=== PATIENT | female | born 1935 | race Two or more races ===

== ENCOUNTER 2024-11-13 10:51 | Inpatient (IN) | payer OTHER ==
[~2024-11-13] VITALS: Ht 152.4 cm; Wt 57.2 kg
[2024-11-13 12:08] LABS: Basophils # (auto) 0 10 ^3/uL (0-0.2); Basophils % (auto) 0.3 % (0.0-2.0); Eosinophils # (auto) 0 10 ^3/uL (0-0.8); Eosinophils % (auto) 0.1 % (0.0-7.0); Hemoglobin 11.7 g/dL (12.2-16.2); Lymphocytes # (auto) 1.2 10 ^3/uL (0.4-5.4); Lymphocytes % (auto) 9.2 % (10.0-50.0); Mean Corpuscular Hgb Conc. 34.5 g/dL (32.0-36.0); Mean Corpuscular Volume 95.7 fL (80.0-100.0); Monocytes # (auto) 1.5 10 ^3/uL (0-1.3); Monocytes % (auto) 11.1 % (0.0-12.0); Neutrophils # (auto) 10.6 10 ^3/uL (1.6-8.6); Neutrophils % (auto) 79.3 % (37.0-80.0); Platelet Count (auto) 265 10^3/uL (140-450); Red Blood Cells 3.55 10^6/uL (4.0-5.20); Red Cell Distribution Width 12.9 % (11.8-14.3); White Blood Cell 13.4 10^3/uL (4.4-10.8)
[2024-11-13 12:19] LABS: Potassium 4.6 mmol/L (3.5-5.1)
[2024-11-13 12:20] LABS: Anion Gap 9 (5-15); Calcium 9.9 mg/dL (8.7-10.4); Carbon Dioxide 21 mmol/L (20-31); Chloride 98 mmol/L (98-107); Sodium 128 mmol/L (136-145)
[2024-11-13 12:25] LABS: BUN/Creatinine Ratio 26.9 (10.0-20.0); Blood Urea Nitrogen 18 mg/dL (9-23); Glucose 93 mg/dL (74-106)
--- NOTE | 2024-11-13 12:28 | ED.PDOC ---
History of Present Illness HPI Comments 88-year-old female brought in by EMS from home. Daughter called 911, as the patient has been complaining of right hip pain for the last 4 days, and has been unable to ambulate today due to the pain. Patient's daughter states patient has a history of dementia, and could not recall if she had fallen. Daughter states patient was seen at another hospital for right hand pain, x-rays were performed, they were told there was no fracture, and the patient was placed in a splint. At the time, the patient was not complaining of pain anywhere else, so no other imaging was performed. Patient localizes the pain to the mid and right low back and right hip. She denies any numbness, weakness or limited range of motion. Chief Complaint: Lower Extremity Time Seen by MD: 11:45 Reviewed Notes: Nurses Notes, Oil Heater Operator Notes, Medications, Allergies Allergies: Coded Allergies: Ciprofloxacin (Verified Allergy, Severe, 11/13/24) Information Source: Patient, Relative (Child) Mode of Arrival: EMS Severity: Moderate Timing: Days Duration: Since onset, Days Prehospital treatment: None Past Medical History PAST MEDICAL HISTORY: Alzheimer, CVA, High Lipids, HTN Surgical History: Hysterectomy MATERIAL MANAGER History: No Pertinent MATERIAL MANAGER History Family History Family History: Reviewed,noncontributory to illness, Unknown Social History Smoker: Non-Smoker Alcohol: Denies ETOH Use Drugs: Denies Drug Use Lives In: Home Constitutional: denies: chills, diaphoresis, fatigue, fever, malaise, sweats, weakness, others EENTM: denies: blurred vision, double vision, ear bleeding, ear discharge, ear drainage, ear pain, ear ringing, eye pain, eye redness, hearing loss, mouth pain, mouth swelling, nasal discharge, nose bleeding, nose congestion, nose pain, photophobia, tearing, throat pain, throat swelling, voice changes, others Respiratory: denies: cough, hemoptysis, orthopnea, SOB at rest, shortness of breath, SOB with excertion, stridor, wheezing, others Cardiovascular: denies: chest pain, dizzy spells, diaphoresis, Dyspnea on exertion, edema, irregular heart beat, left arm pain, lightheadedness, palpitations, PND, syncope, others Gastrointestinal: denies: abdomen distended, abdominal pain, blood streaked bowels, constipated, diarrhea, dysphagia, difficulty swallowing, hematemesis, melena, nausea, poor appetite, poor fluid intake, rectal bleeding, rectal pain, vomiting, others Genitourinary: denies: abnormal vagina bleeding, burning, dyspareunia, dysuria, flank pain, frequency, hematuria, incontinence, pain, , vagina discharge, urgency, others Neurological: denies: dizziness, fainting, headache, left sided numbness, left sided weakness, numbness, paresthesia, pre-existing deficit, right sided numbness, right sided weakness, seizure, speech problems, tingling, tremors, weakness, others Musculoskeletal: reports: others (hip pain); denies: back pain, gout, joint pain, joint swelling, muscle pain, muscle stiffness, neck pain Integumetry: denies: bruises, change in color, change in hair/nails, dryness, laceration, lesions, lumps, rash, wounds, others Allergic/Immunocompromised: denies: Difficulty Healing, Frequent Infections, Hives, Itching, others Hematologic/Lymphatic: denies: anemia, blood clots, easy bleeding, easy bruising, swollen glands, others Endocrine: denies: excessive hunger, excessive sweating, excessive thirst, excessive urination, flushing, intolerance to cold, intolerance to heat, unexpl ained weight gain, unexplained weight loss, others Psychiatric: denies: anxiety, bipolar disorder, depression, hopeless, panic disorder, schizophrenia, sleepless, suicidal, others All Other Systems: Reviewed and Negative Physical Exam General Appearance: No Apparent Distress HEENT: Other (Pupils and face symmetric. Moist mucous membranes.) Neck: Full Range of Motion, Normal Inspection Respiratory: Lungs Clear, No Accessory Muscle Use, No Respiratory Distress, Normal Breath Sounds Cardiovascular: No Edema, No JVD, Regular Rate/Rhythm Breast Exam: Deferred Gastrointestinal: Non Tender, Soft Genitalia: Deferred Pelvic: Deferred Rectal: Deferred Extremities: Normal inspection, Other (Lumbar midline, right lower back and right hip tenderness to palpation. No bruising or crepitus.) Neurologic: Alert (Oriented x2), Normal Affect, Normal Mood, Other (Moves all extremities) Cerebellar Function: NOT DONE Reflexes: NOT DONE Skin: Dry, Normal Color, Warm Lymphatic: NOT DONE Was a procedure done? Was a procedure done?: No Differential Dx Considerations may include: Spine fracture, hip fracture, neuropathic pain, disc disease, sprain, strain, other soft tissue injury, contusion, among others X-Ray, Labs, Meds, VS Vital Signs Date Time Temp Pulse Resp B/P (MAP) Pulse Ox O2 Delivery O2 Flow Rate FiO2 11/13/24 19:45 98.3 65 17 128/45 (72) 96 98.3 11/13/24 18:20 98.0 66 15 127/49 (75) 93 98.0 11/13/24 18:20 66 15 93 Room Air* 0 21 11/13/24 16:28 97.8 63 12 115/37 (63) 96 97.8 11/13/24 13:23 98.2 67 16 155/64 (94) 99 98.2 11/13/24 10:57 97.8 67 15 152/78 (102) 97 97.8 Lab Test 11/13/24 21:13 11/13/24 12:47 11/13/24 11:48 Range/Units Urine Color Colorless Yellow Urine Clarity Turbid H Clear Urine pH 6.5 5.0-9.0 Urine Specific [place] 1.010 1.001-1.035 Urine Protein Trace H Negative Urine Ketones Negative Negative Urine Blood Negative Negative /uL Urine Nitrite Negative Negative Urine Bilirubin Negative Negative Urine Urobilinogen Normal Negative mg/dL Urine Leukocyte Esterase 3+ Negative /uL Urine RBC 2 0 - 4 /hpf Urine Microscopic WBC 37 H 0-5 /HPF Urine Squamous Epithelial Cells Few <5 /hpf Urine Bacteria Many H None Seen /hpf Urine Glucose Normal Normal mg/dL Troponin I High Sensitivity < 3 L 3 L </=34 ng/L White Blood Count 13.4 H 4.4-10.8 10^3/uL Red Blood Count 3.55 L 4.0-5.20 10^6/uL Hemoglobin 11.7 L 12.2-16.2 g/dL Hematocrit 34.0 L 36.0-46.0 % Mean Corpuscular Volume 95.7 80.0-100.0 fL Mean Corpuscular Hemoglobin 33.0 H 28.0-32.0 pg Mean Corpuscular Hemoglobin Concent 34.5 32.0-36.0 g/dL Red Cell Distribution Width 12.9 11.8-14.3 % Platelet Count 265 140-450 10^3/uL Mean Platelet Volume 7.3 6.9-10.8 fL Neutrophils (%) (Auto) 79.3 37.0-80.0 % Lymphocytes (%) (Auto) 9.2 L 10.0-50.0 % Monocytes (%) (Auto) 11.1 0.0-12.0 % Eosinophils (%) (Auto) 0.1 0.0-7.0 % Basophils (%) (Auto) 0.3 0.0-2.0 % Neutrophils # (Auto) 10.6 H 1.6-8.6 10 ^3/uL Lymphocytes # (Auto) 1.2 0.4-5.4 10 ^3/uL Monocytes # (Auto) 1.5 H 0-1.3 10 ^3/uL Eosinophils # (Auto) 0 0-0.8 10 ^3/uL Basophils # (Auto) 0 0-0.2 10 ^3/uL Nucleated Red Blood Cells 0.0 % Sodium Level 128 L 136-145 mmol/L Potassium Level 4.6 3.5-5.1 mmol/L Chloride Level 98 98-107 mmol/L Carbon Dioxide Level 21 20-31 mmol/L Anion Gap 9 5-15 Blood Urea Nitrogen 18 9-23 mg/dL Creatinine 0.67 0.550-1.02 mg/dL Glomerular Filtration Rate Calc 83 >90 mL/min BUN/Creatinine Ratio 26.9 H 10.0-20.0 Serum Glucose 93 74-106 mg/dL Calcium Level 9.9 8.7-10.4 mg/dL B-Type Natriuretic Peptide 32.19 0-100 pg/mL Current Medications Medications (Trade) Dose Ordered Sig/Sol Route Start Time Stop Time Status Last Admin Acetaminophen/ Hydrocodone Bitart ([place] 5/325MG Tab) 1 tab ONCE ONCE PO 11/13/24 11:30 11/13/24 11:31 DC 11/13/24 13:29 Ondansetron HCl (Zofran Po) 4 mg ONCE ONCE PO 11/13/24 11:30 11/13/24 11:31 DC 11/13/24 13:28 Sodium Chloride 1,000 ml @ 1,000 mls/hr Q1H ONCE IV 11/13/24 18:15 11/13/24 19:14 DC 11/13/24 18:58 PROCEDURE(s): PL2CT - PELVIS WO CONTRAST REASON: pain, unable to ambulate ORDER NUMBER(s): [id number], ACCESSION NUMBER(s): [id number] Exam: CT PELVIS WO CONTRAST History: pain, unable to ambulate Comparison Study: None available at time of dictation. TECHNIQUE: Multidetector CT of the pelvis without IV contrast. Axial, coronal and sagittal multiplanar reformats were obtained from the axial data set by the technologist. Radiation Dose Information: CT Dose: CTDI volume is 9.63 mGy. Dose-length product is 1040.69 mGy*cm FINDINGS: Diffuse demineralization. No evidence of acute traumatic fractures. Nndr-ar-gjnosztb degenerative changes of bilateral SI joints and bilateral hips. Minimal lateral posterior pelvic wall subcutaneous fat edema with mild edema of the pwjmj-aexuxsb-aqkv-left posterolateral hips Partially visualized sigmoid diverticulosis without diverticulitis. IMPRESSION: No evidence of acute traumatic fractures or dislocations. If symptoms persist, consider MRI to evaluate for possible occult fractures. EDURE(s): LS2CT - LS SPINE WO CONTRAST REASON: pain ORDER NUMBER(s): [id number], ACCESSION NUMBER(s): [id number] CT LS SPINE WO CONTRAST INDICATION: pain : 88 old Female pain EXAM DATE: 11/13/2024 12:46 PM COMPARISON: None RADIATION DOSE: CTDIvol: 18.93 mGy, DLP: 1040.69 mGy*cm Technique: Utilizing the CT scanner, contiguous axial scans were obtained thr ough the lumbar spine. Coronal and sagittal reformatted images were then generated. All CT scans at this medical facility are performed using dose modulation techniques as appropriate to a performed exam including the following: Automated exposure control was utilized; adjustment of the MA and/or KV according to patient size; and use of iterative reconstruction technique. FINDINGS: 5 tas-woh-eeviurv lumbar-type vertebrae. Normal alignment of the lumbar spine. Vertebral body heights are relatively maintained. Superior endplate Schmorl node of L2 and L3 with inferior endplate schmorl node of L3. Hemangioma within the left T12 vertebral body. Diffuse demineralization. T12-L1: No significant spinal canal or neural foramina stenosis. L1-L2: Mild posterior disc bulge without significant spinal canal or neural foramina stenosis. L2-L3: No significant spinal canal stenosis. Mild left-sided neural foramina stenosis. L3-L4: Minimal posterior disc bulge without significant spinal canal stenosis. Jejb-xk-zkufkqme bilateral neural foramina stenosis. L4-L5: Mild posterior disc bulge with ligamentum flavum hypertrophy without significant spinal canal stenosis. Xbpz-mg-zbktpppd bilateral neural foramina stenosis. L5-S1: Grade 1 anterolisthesis of L5 on S1. Mild posterior disc bulge without significant spinal canal stenosis. Moderate right with ctvy-pv-kozcvoum left- sided neural foramina stenosis. Nonspecific calcification within the paraspinal muscle from T11 to L1-L2. Otherwise, the paraspinal muscles are unremarkable. IMPRESSION: No evidence of acute traumatic fractures. Grade 1 anterolisthesis of L5 on S1 which appears degenerative. Multilevel qgzx-fl-xyhictxw degenerative changes of the lumbar spine as detailed above. If symptoms persist, consider MRI for further evaluation. EDURE(s): CXRP - CHEST PORTABLE REASON: possible fall ORDER NUMBER(s): [id number], ACCESSION NUMBER(s): [id number] EXAM: XY CHEST PORTABLE HISTORY: possible fall COMPARISON: None TECHNIQUE: Portable AP view of the chest was performed. FINDINGS: No pneumothorax, consolidative infiltrates, or pulmonary edema. There are tracheobronchial calcifications. The heart is enlarged. The aortic arch is calcific. IMPRESSION: 1. No acute intrathoracic process. 2. Cardiomegaly and atherosclerotic vascular disease. X-Ray, Labs, Meds, VS Comment 88-year-old female with history of CVA, dementia, hypertension and dyslipidemia complaining of right-sided low back and hip pain for the last 4 days. Daughter states the patient possibly fell, however the patient has dementia and can not recall. Remarkable for BP 152/78 Exam remarkable for lower lumbar, right-sided lower back, and right hip tenderness Rhythm strip independently interpreted by me: Sinus rhythm, rate 67, no ectopy. Chest x-ray unremarkable, CT lumbar sacral spine and CT of the hip unremarkable for any acute injury CBC remarkable for WBC 13.4, basic metabolic panel remarkable for sodium 128, UA pending Patient treated with the following in the ED: [place] 5/325 mg p.o., 1 L 0.9 normal saline IV bolus On re-evaluation, patient states pain has improved. Vitals were stable. Patient's states the patient has been unable to ambulate for the past 4 days. Patient states she does not believe she can ambulate at this time. Plan is to admit the patient for pain control and PT/OT evaluation, then possible SNF placement. Time of 1ST Reevaluation: 12:15 Reevaluation 1ST: Unchanged Patient Education/Counseling: Diagnosis, Treatment, Prognosis Family Education/Counseling: Diagnosis, Treatment, Prognosis Departure 1 Departure Time of Disposition: 18:19 Impression: Primary Impression: Right hip pain Additional Impressions: At risk for falls Unable to ambulate Disposition: ADMITTED INPATIENT Admit to: Med Surg Condition: Fair Critical Care Note Critical Care Time?: No Stability Stability form required: No Heart Score Heart Score: Heart Score Response (Comments) Value History N/A 0 EKG N/A 0 Age N/A 0 Risk Factors N/A 0 Troponin N/A 0 Total 0 I personally scribed for DARREN ANG MD ([email or web address]) on 11/13/24 at 12:28. Electronically submitted by Remy Sanford ([email or web address]). I personally scribed for DARREN ANG MD ([email or web address]) on 11/13/24 at 17:25. Electronically submitted by Remy Sanford ([email or web address]). DARREN ANG MD Nov 13, 2024 12:28
--- NOTE | 2024-11-13 13:14 | DVH ---
EXAM: XY CHEST PORTABLE HISTORY: possible fall COMPARISON: None TECHNIQUE: Portable AP view of the chest was performed. FINDINGS: No pneumothorax, consolidative infiltrates, or pulmonary edema. There are tracheobronchial calcificat ions. The heart is enlarged. The aortic arch is calcific. IMPRESSION: 1. No acute intrathoracic process. 2. Cardiomegaly and atherosclerotic vascular disease.
[2024-11-13] MEDS: ONDANSETRON ODT 4 MG TAB PO ONE (13:28)
[2024-11-13] MEDS: HYDROcodone-ACET 5/325MG TAB PO ONE (13:29)
--- NOTE | 2024-11-13 13:29 | DVH ---
CT LS SPINE WO CONTRAST INDICATION: pain : 88 old Female pain EXAM DATE: 11/13/2024 12:46 PM COMPARISON: None RADIATION DOSE: CTDIvol: 18.93 mGy, DLP: 1040.69 mGy*cm Technique: Utilizing the CT scanner, contiguous axial scans were obtained through the lumbar spine. C oronal and sagittal reformatted images were then generated. All CT scans at this medical facility are performed using dose modulation techniques as appropriate t o a performed exam including the following: Automated exposure control was utilized; adjustment of th e MA and/or KV according to patient size; and use of iterative reconstruction technique. FINDINGS: 5 oap-ujf-bseqsys lumbar-type vertebrae. Normal alignment of the lumbar spine. Vertebral body height s are relatively maintained. Superior endplate Schmorl node of L2 and L3 with inferior endplate schmo rl node of L3. Hemangioma within the left T12 vertebral body. Diffuse demineralization. T12-L1: No significant spinal canal or neural foramina stenosis. L1-L2: Mild posterior disc bulge without significant spinal canal or neural foramina stenosis. L2-L3: No significant spinal canal stenosis. Mild left-sided neural foramina stenosis. L3-L4: Minimal posterior disc bulge without significant spinal canal stenosis. Rsvl-mq-pskqqnyx bilat eral neural foramina stenosis. L4-L5: Mild posterior disc bulge with ligamentum flavum hypertrophy without significant spinal canal stenosis. Dhbs-ox-kjlrqjpd bilateral neural foramina stenosis. L5-S1: Grade 1 anterolisthesis of L5 on S1. Mild posterior disc bulge without significant spinal can al stenosis. Moderate right with ekqm-tz-tylcrocx left-sided neural foramina stenosis. Nonspecific calcification within the paraspinal muscle from T11 to L1-L2. Otherwise, the paraspinal muscles are unremarkable. IMPRESSION: No evidence of acute traumatic fractures. Grade 1 anterolisthesis of L5 on S1 which appears degenerat stacie. Multilevel dcdl-ye-hotobnfg degenerative changes of the lumbar spine as detailed above. If symptoms persist, consider MRI for further evaluation.
--- NOTE | 2024-11-13 13:42 | DVH ---
Exam: CT PELVIS WO CONTRAST History: pain, unable to ambulate Comparison Study: None available at time of dictation. TECHNIQUE: Multidetector CT of the pelvis without IV contrast. Axial, coronal and sagittal multiplana r reformats were obtained from the axial data set by the technologist. Radiation Dose Information: CT Dose: CTDI volume is 9.63 mGy. Dose-length product is 1040.69 mGy*cm FINDINGS: Diffuse demineralization. No evidence of acute traumatic fractures. Ieyi-sw-teaspxla degenerative adam nges of bilateral SI joints and bilateral hips. Minimal lateral posterior pelvic wall subcutaneous fat edema with mild edema of the hbcis-orcuklq-nvd n-left posterolateral hips Partially visualized sigmoid diverticulosis without diverticulitis. IMPRESSION: No evidence of acute traumatic fractures or dislocations. If symptoms persist, consider MRI to evalua te for possible occult fractures.
[2024-11-13 18:20] VITALS: PULSE 66; RESP 15; O2SAT 93
[2024-11-13] MEDS: SODIUM CHLORIDE 0.9% 1,000 ML IV ONE (18:58)
[2024-11-13 19:45] VITALS: PULSE 65; RESP 17; O2SAT 96
[2024-11-13 21:37] LABS: Urine Bacteria MANY /hpf (None Seen); Urine Blood Negative /uL (Negative); Urine Clarity Turbid (Clear); Urine Color Colorless (Yellow); Urine Protein, UAD TRACE (Negative); Urine Squamous Epithelial Cell FEW /hpf (<5); Urine Urobilinogen Normal (Negative); Urine WBC 37 /HPF (0-5); Urine pH 6.5 (5.0-9.0)
[2024-11-13] MEDS ORDERED: ONDANSETRON HCL 4 MG/2 ML VIAL IV PRN (22:45)
[2024-11-13] MEDS ORDERED: ACETAMINOPHEN 325 MG TAB PO PRN (22:45)
--- NOTE | 2024-11-13 22:50 | DVHHPRES ---
History of Present Illness Resident Creating Document: MEKA MCKINNEY RESIDENT History of Present Illness Patient is an 88-year-old female with past medical history of migraine, advanced Alzheimer's dementia, hypertension, CVA who comes in to right hip pain. Patient is AO x1 at the time of my assessment which according to daughters at bedside is her baseline. According to the daughters, patient has been experiencing a right-sided hip pain for the last 4 days which has resulted in decreased mobility. Patient has also been increasingly urinary incontinent along with decreased appetite for the last 2 days. Per daughters, before current symptoms patient was able to ambulate independently with a walker. On review of systems patient is complaining of fatigue, chills, incontinence, urinary hesitancy and constipation. UA showed 3+ leukocyte esterase, 37 WBCs and many bacteria. Urine culture was ordered and patient was started on IV ceftriaxone. Past Medical History migraine, advanced Alzheimer's dementia, hypertension, CVA Past Surgical History Hysterectomy, cataract removal surgery Smoke: No ALCOHOL: none Drugs: None Lives: Alone Review of Systems Constitutional: Yes: Chills, Malaise; No: Fever, Sweats, Weakness, Other Eyes: No: Pain, Vision change, Conjunctivae inflammation, Eyelid inflammation, Other, Redness ENT: No: Ear pain, Ear discharge, Nose pain, Nose discharge, Nose congestion, Mouth pain, Mouth swelling, Throat pain, Throat swelling, Other Respiratory: No: Cough, Dry, Shortness of breath, SOB with excertion, Wheezing, Hemoptysis, Pleuritic Pain, Sputum, Wheezing, Other Cardiovascular: No: Chest Pain, Palpitations, Orthopnea, Paroxysmal Noc. Dyspnea, Edema, Lt Headedness, Other Gastrointestinal: Constipation; No: Nausea, Vomiting, Abdominal Pain, Diarrhea, Melena, Hematochezia, Other Genitourinary: No Dysuria, No Frequency; Incontinence; No Hematuria; Retention; No Other Musculoskeletal: back pain; No: other, neck pain, shoulder pain, arm pain, hand pain, leg pain, foot pain Skin: No: Rash, Lesions, Jaundice, Bruising, Other Neurological: No: Weakness, Numbness, Incoordination, Change in speech, Confusion, Seizures, Other Allergies: Coded Allergies: Ciprofloxacin (Verified Allergy, Severe, 11/13/24) Medications Current Medications Medications Dose Ordered Sig/Sol Route Start Time Stop Time Status Last Admin Dose Admin Acetaminophen 325 mg Q4HP PRN PO 11/13/24 22:45 UNV Ondansetron HCl 4 mg Q4HP PRN IV 11/13/24 22:45 UNV Enoxaparin Sodium 40 mg DAILY SC 11/14/24 10:00 UNV Exam Vital Signs Vital Signs Date Time Temp Pulse Resp B/P (MAP) Pulse Ox O2 Delivery O2 Flow Rate FiO2 11/13/24 18:20 98.0 66 15 127/49 (75) 93 98.0 11/13/24 18:20 Room Air* 0 21 General Appearance: Alert, Cooperative, No acute distress, Other (AO x1) HEENT: Atraumatic, PERRLA, EOMI, Other (Dry mucous membrane) Respiratory: Clear to auscultation, Normal air movement Cardiovascular: Regular rate, Other (Systolic murmur heard) Abdominal: Normal bowel sounds, Soft, No tenderness Extremities: Other (No tenderness to palpation noted on bilateral femoral areas. Cool lower extremities, decreased pedal pulses.) Skin: No rashes Neuro: Normal speech, Sensation intact Psych/Mental Status: Mental status NL, Mood NL Labs/Xrays Labs Test 11/13/24 21:13 11/13/24 12:47 11/13/24 11:48 Range/Units Urine Color Colorless Yellow Urine Clarity Turbid H Clear Urine pH 6.5 5.0-9.0 Urine Specific [place] 1.010 1.001-1.035 Urine Protein Trace H Negative Urine Ketones Negative Negative Urine Blood Negative Negative /uL Urine Nitrite Negative Negative Urine Bilirubin Negative Negative Urine Urobilinogen Normal Negative mg/dL Urine Leukocyte Esterase 3+ Negative /uL Urine RBC 2 0 - 4 /hpf Urine Microscopic WBC 37 H 0-5 /HPF Urine Squamous Epithelial Cells Few <5 /hpf Urine Bacteria Many H None Seen /hpf Urine Glucose Normal Normal mg/dL Troponin I High Sensitivity < 3 L </=34 ng/L White Blood Count 13.4 H 4.4-10.8 10^3/uL Red Blood Count 3.55 L 4.0-5.20 10^6/uL Hemoglobin 11.7 L 12.2-16.2 g/dL Hematocrit 34.0 L 36.0-46.0 % Mean Corpuscular Volume 95.7 80.0-100.0 fL Mean Corpuscular Hemoglobin 33.0 H 28.0-32.0 pg Mean Corpuscular Hemoglobin Concent 34.5 32.0-36.0 g/dL Red Cell Distribution Width 12.9 11.8-14.3 % Platelet Count 265 140-450 10^3/uL Mean Platelet Volume 7.3 6.9-10.8 fL Neutrophils (%) (Auto) 79.3 37.0-80.0 % Lymphocytes (%) (Auto) 9.2 L 10.0-50.0 % Monocytes (%) (Auto) 11.1 0.0-12.0 % Eosinophils (%) (Auto) 0.1 0.0-7.0 % Basophils (%) (Auto) 0.3 0.0-2.0 % Neutrophils # (Auto) 10.6 H 1.6-8.6 10 ^3/uL Lymphocytes # (Auto) 1.2 0.4-5.4 10 ^3/uL Monocytes # (Auto) 1.5 H 0-1.3 10 ^3/uL Eosinophils # (Auto) 0 0-0.8 10 ^3/uL Basophils # (Auto) 0 0-0.2 10 ^3/uL Nucleated Red Blood Cells 0.0 % Sodium Level 128 L 136-145 mmol/L Potassium Level 4.6 3.5-5.1 mmol/L Chloride Level 98 98-107 mmol/L Carbon Dioxide Level 21 20-31 mmol/L Anion Gap 9 5-15 Blood Urea Nitrogen 18 9-23 mg/dL Creatinine 0.67 0.550-1.02 mg/dL Glomerular Filtration Rate Calc 83 >90 mL/min BUN/Creatinine Ratio 26.9 H 10.0-20.0 Serum Glucose 93 74-106 mg/dL Calcium Level 9.9 8.7-10.4 mg/dL B-Type Natriuretic Peptide 32.19 0-100 pg/mL Assessment/Plan Assessment/Plan Generalized weakness Right hip pain possibly due to osteoarthritis - lumbar spine CT:No evidence of acute traumatic fractures. Grade 1 anterolisthesis of L5 on S1 which appears degenerative. Multilevel [id number] degenerative changes of the lumbar spine as detailed above. If symptoms persist, consider MRI for further evaluation. - pelvic CT: No evidence of acute traumatic fractures or dislocations. If symptoms persist consider MRI to evaluate for possible occult fractures. - vitamin-D levels - PT evaluation Acute complicated UTI - IV ceftriaxone - IV NS 1 L bolus Advanced Alzheimer's dementia with baseline AO x1 - resumed home medication donepezil Hypertension Hypertensive heart disease History of CVA - CXR: No acute intrathoracic process. Cardiomegaly and atherosclerotic vascular disease. - aspirin 81 mg, atorvastatin 40 mg - ordered echocardiogram History of migraine - resumed home medication amitriptyline 25 mg Slow transit constipation - Colace 100 mg p.o. b.i.d. as needed DVT prophylaxis: Levonox 40mg Goals of care: Full code, discussed for >16 minutes on 11/13/2024 Plan discussed with patient Plan discussed with Dr. Jj Plan discussed with: Patient, Daughter, Other (RN) My Orders Orders - MEKA MCKINNEY RESIDENT Procedure Category Date Status Time Admit ADMIT 11/13/24 Transmitted 22:44 Allergies RAFA 11/13/24 In Process 22:44 Code Status CODE 11/13/24 Transmitted 22:44 Acetaminophen Tablet PHA 11/13/24 Logged (Tylenol Tablet) 22:45 Ondansetron Hcl PHA 11/13/24 Logged (Zofran) 22:45 Enoxaparin Sodium PHA 11/14/24 Logged (Lovenox) 10:00 Complete Blood Count LAB 11/14/24 Verified 04:00 Comprehensive LAB 11/14/24 Verified Metabolic Panel 04:00 Cardiac DIET 11/14/24 Transmitted Diet-2gna,Lofat,Lochol Breakfast Pt Request For Service PT 11/13/24 Transmitted 22:44 * Swallow Request ST 11/13/24 Transmitted 22:44 Condition: Unstable RAFA 11/13/24 In Process 22:44 Notify Of Changes RAFA 11/13/24 In Process From Base 22:44 Echo 2d Mode Cardiac US 11/13/24 Transmitted DOP 22:44 Urine Bacterial MIGNON 11/13/24 Transmitted Culture 22:44 Lactic Acid W/ Reflex LAB 11/13/24 Transmitted Order 22:44 Ceftriaxone Ivpb PHA 11/14/24 Transmitted Rocephin 09:00 Ceftriaxone Ivpb PHA 11/13/24 Transmitted Rocephin 22:45 Blood Culture MIGNON 11/13/24 Transmitted 22:44 Mrsa Screen MIGNON 11/13/24 Transmitted 22:44 Thyroid Stimulating LAB 11/13/24 Transmitted Hormone 22:44 Date of Service: Nov 13, 2024 Billing Provider: SARA JJ MD Common Visit Codes: [id number] INP/OBS CARE (HIGH) MEKA MCKINNEY RESIDENT Nov 13, 2024 22:50
[2024-11-13] MEDS ORDERED: DOCUSATE SOD 100 MG CAP PO PRN (23:00)
[2024-11-14] MEDS: DOCUSATE SOD 100 MG CAP PO ONE (00:05)
[2024-11-14] MEDS: cefTRIAXone 1GM/50ML D5W 50 ML IV ONE (00:05)
[2024-11-14 07:00] LABS: Basophils # (auto) 0.1 10 ^3/uL (0-0.2); Basophils % (auto) 0.5 % (0.0-2.0); Eosinophils # (auto) 0 10 ^3/uL (0-0.8); Eosinophils % (auto) 0.2 % (0.0-7.0); Hematocrit 29.6 % (36.0-46.0); Hemoglobin 10.1 g/dL (12.2-16.2); Lymphocytes # (auto) 1.3 10 ^3/uL (0.4-5.4); Lymphocytes % (auto) 11.6 % (10.0-50.0); Mean Corpuscular Hemoglobin 32.5 pg (28.0-32.0); Mean Corpuscular Hgb Conc. 34.1 g/dL (32.0-36.0); Mean Corpuscular Volume 95.4 fL (80.0-100.0); Monocytes # (auto) 1.2 10 ^3/uL (0-1.3); Monocytes % (auto) 11.1 % (0.0-12.0); Neutrophils # (auto) 8.6 10 ^3/uL (1.6-8.6); Neutrophils % (auto) 76.6 % (37.0-80.0); Platelet Count (auto) 281 10^3/uL (140-450); Red Blood Cells 3.11 10^6/uL (4.0-5.20); Red Cell Distribution Width 12.9 % (11.8-14.3); White Blood Cell 11.2 10^3/uL (4.4-10.8)
[2024-11-14 07:08] LABS: Folate (Folic Acid) 17.2 ng/mL (>5.38)
[2024-11-14 07:12] LABS: Alkaline Phosphatase 71 U/L (46-116); Anion Gap 8 (5-15); BUN/Creatinine Ratio 24.6 (10.0-20.0); Blood Urea Nitrogen 15 mg/dL (9-23); Calcium 9.6 mg/dL (8.7-10.4); Carbon Dioxide 22 mmol/L (20-31); Chloride 100 mmol/L (98-107); Potassium 4.4 mmol/L (3.5-5.1); Total Protein 6.7 g/dL (5.7-8.2)
[2024-11-14 07:13] LABS: Alanine Aminotransferase < 9 U/L (7-40); Aspartate Aminotransferase 10 U/L (13-40); Bilirubin, Total 0.5 mg/dL (0.2-1.0); Glucose 107 mg/dL (74-106); Sodium 130 mmol/L (136-145)
[2024-11-14 07:30] VITALS: PULSE 63; RESP 16; O2SAT 97
[2024-11-14] MEDS: AMITRIPTYLINE HCL 25 MG TAB PO SCH (08:44)
--- NOTE | 2024-11-14 09:36 | DVHPNRES ---
Progress Note Date Seen: November 14, 2024 Resident Creating Document: NIGEL DOUGHERTY RESIDENT Medical Necessity Reason Pt with a Central, PICC or Fol: No Subjective Review of Systems Patient is an 88-year-old female with past medical history of migraine, advanced Alzheimer's dementia, hypertension, CVA who comes in to right hip pain. Patient is AO x1 at the time of my assessment which according to daughters at bedside is her baseline. According to the daughters, patient has been experiencing a right-sided hip pain for the last 4 days which has resulted in decreased mobility. Patient has also been increasingly urinary incontinent along with decreased appetite for the last 2 days. Per daughters, before current symptoms patient was able to ambulate independently with a walker. The patient was seen and examined on the bedside. The patient is Vietnamese- speaking and she is confused; family translated; no specific complaint ROS: Unable to obtain due to the mental status of the patient Objective vital signs Vital Sign Date Time Temp Pulse Resp B/P (MAP) Pulse Ox O2 Delivery O2 Flow Rate FiO2 11/14/24 07:30 97.9 63 16 141/47 (78) 97 97.9 11/14/24 07:30 Room Air* 0 21 medications Current Medications Medications Dose Ordered Sig/Sol Route Start Time Stop Time Status Last Admin Dose Admin Acetaminophen 325 mg Q4HP PRN PO 11/13/24 22:45 Ondansetron HCl 4 mg Q4HP PRN IV 11/13/24 22:45 Enoxaparin Sodium 40 mg DAILY SC 11/14/24 10:00 Ceftriaxone Sodium 50 ml @ 100 mls/hr DAILY@2100 IV 11/14/24 21:00 Docusate Sodium 100 mg BIDPRN PRN PO 11/13/24 23:00 Aspirin 81 mg DAILY PO 11/14/24 10:00 Atorvastatin Calcium 40 mg HS PO 11/14/24 22:00 Donepezil HCl 10 mg HS PO 11/14/24 22:00 Amitriptyline HCl 25 mg DAILY PO 11/14/24 08:00 11/14/24 08:44 25 MG Patient Own Medication 1 DAILY PO 11/14/24 10:00 Acetaminophen 650 mg Q4HP PRN PO 11/14/24 09:15 Examination Physical examination: General Appearance: Confused; awake; oriented to her daughters only HEENT: Atraumatic, PERRLA, EOMI, Mucous membrane moist/pink Respiratory: Clear to auscultation, Normal air movement Cardiovascular: Regular rate, Normal S1, Normal S2, No murmurs, no chest wall tenderness Abdominal: Normal bowel sounds, Soft, No tenderness, No hepatosplenomegaly, No masses Extremities: No clubbing, No cyanosis, No edema, Normal pulses, No tenderness/swelling Skin: No rashes, No breakdown, No significant lesion Neuro: Moves all extremities; no facial asymmetry; normal speech Psych/Mental Status: Confused laboratory and microbiology Laboratory Tests 11/14/24 06:15 Test 11/14/24 06:15 Range/Units Serum Glucose 107 H 74-106 mg/dL Labs and/or images reviewed: Labs reviewed by me, Image(s) reviewed by me Problem List/Assessment/Plan Problem List/Assessment/Plan Assessment/Plan: # Acute metabolic/toxic encephalopathy; most likely delirium in the setting of advanced dementia # Generalized weakness # Right hip pain possibly due to osteoarthritis # Vitamin D deficiency - Lumbar spine CT:No evidence of acute traumatic fractures. Grade 1 anterolisthesis of L5 on S1 which appears degenerative. Multilevel [id number] degenerative changes of the lumbar spine as detailed above. If symptoms persist, consider MRI for further evaluation. - Pelvic CT: No evidence of acute traumatic fractures or dislocations. If symptoms persist consider MRI to evaluate for possible occult fractures. - Vitamin D 14149 unit Q7D. - PT evaluation - To allow the patient's daughters to stay with her at bedside all the time # Acute complicated UTI - U/A consistent with UTI - Ordered urine bacterial culture - IV ceftriaxone 1 gm daily # Progressive dysphagia to solid and liquid - Consulted GI # Advanced Alzheimer's dementia with baseline AO x1 - resumed home medication donepezil # Hypertension # Hypertensive heart disease # History of CVA - CXR: No acute intrathoracic process. Cardiomegaly and atherosclerotic vascular disease. - aspirin 81 mg, atorvastatin 40 mg - ordered echocardiogram #History of migraine - resumed home medication amitriptyline 25 mg # Slow transit constipation - Colace 100 mg p.o. b.i.d. as needed # DVT prophylaxis: Lovenox 40mg Goals of care: Chemical code, discussed with the patient's daughters for 20 minutes Plan discussed with Dr. Nicole Plan discussed with: Daughter, Other (RN) My Orders My Orders Orders - NIGEL DOUGHERTY RESIDENT Procedure Category Date Status Time Acetaminophen Tablet PHA 11/14/24 In Process (Tylenol Tablet) 09:15 Addendum Addendum Addendum I was physically present for the leavitt portions of the service provided to patient by THE RESIDENT. I have reviewed the documentation, discussed the case with resident and agree with the resident's documentation except as noted. Also the patient's clinical case was discussed with the patient's nurse. This medical document was created using an electronic medical record system with computerized dictation system. Although this document has been carefully reviewed, there might still be some phonetic and typographical errors. These areas are purely typographical due to imperfections of the software programs, and do not reflect any compromise in the patient's medical care. Late signature. Date of Service: November 14, 2024 Billing Provider: CRISTEL NICOLE MD Common Visit Codes: [id number] INP/OBS CARE(HIGH) Secondary Visit Codes: [id number] CARE PLAN 30 MINUTES (20 minutes) NIGEL DOUGHERTY RESIDENT November 14, 2024 09:36 CRISTEL NICOLE MD November 15, 2024 10:20
[2024-11-14] MEDS ORDERED: ERGOCALCIFEROL 50,000 UNIT(1.25MG) CAP PO SCH (10:00)
[2024-11-14] MEDS: ERGOCALCIFEROL 50,000 UNIT(1.25MG) CAP PO SCH (10:58)
[2024-11-14] MEDS: ATOGEPANT 30 MG PO SCH (10:58)
[2024-11-14] MEDS: ASPirin 81 mg TAB PO SCH (10:58)
[2024-11-14] MEDS: ENOXAPARIN SOD 40 MG/0.4 ML SYRINGE SC SCH (10:58)
--- NOTE | 2024-11-14 13:05 | DVHINCON2 ---
GI Consult Consult Note GI consult note Date of Consultation: 11/14/2024 Chief Complaint: Dysphagia Referring Physician: Dr. Alvarado H&P: 88-year-old female with past medical history of migraine, advanced Alzheimer's dementia, hypertension, CVA presented to ER with complains of right hip pain. Also having urinary incontinence. History provided by RN and caregivers at bedside No complains of dysphagia. Patient would complain of occasional sore throat. Possible secondary to heartburn per caregiver. No nausea or vomiting, patient has weight loss of 20 lb in the last 3-4 months. Patient has decreased appetite. Also has history of constipation Unsure of any GI procedures in past Per RN patient is tolerating a regular diet at this time. No symptoms of difficulty swallowing Past Medical History: migraine, advanced Alzheimer's dementia, hypertension, CVA Past Surgical History: Hysterectomy, cataract removal surgery Social History: NO smoking, drinking ETOH and use of illegal drugs. Family History: Noncontributory Review of Systems: Constitutional: no fever, chill, weight loss HEENT: no eye pain, no hearing loss, no oral lesion, no scleral icterus Heart: no chest pain, no chest pressure Lung: no cough, no dyspnea with exertion Abdomen: see HPI Physical exam: General: NAD, AAOX3 Chest: lung richardson clear to auscultation Heart: RRR, no murmur Abdomen: non-distended, no tenderness to palpation, +BS Labs: Labs Test 11/14/24 06:15 11/13/24 23:00 11/13/24 21:13 11/13/24 12:47 Range/Units White Blood Count 11.2 H 4.4-10.8 10^3/uL Red Blood Count 3.11 L 4.0-5.20 10^6/uL Hemoglobin 10.1 L 12.2-16.2 g/dL Hematocrit 29.6 #L 36.0-46.0 % Mean Corpuscular Volume 95.4 80.0-100.0 fL Mean Corpuscular Hemoglobin 32.5 H 28.0-32.0 pg Mean Corpuscular Hemoglobin Concent 34.1 32.0-36.0 g/dL Red Cell Distribution Width 12.9 11.8-14.3 % Platelet Count 281 140-450 10^3/uL Mean Platelet Volume 7.6 6.9-10.8 fL Neutrophils (%) (Auto) 76.6 37.0-80.0 % Lymphocytes (%) (Auto) 11.6 10.0-50.0 % Monocytes (%) (Auto) 11.1 0.0-12.0 % Eosinophils (%) (Auto) 0.2 0.0-7.0 % Basophils (%) (Auto) 0.5 0.0-2.0 % Neutrophils # (Auto) 8.6 1.6-8.6 10 ^3/uL Lymphocytes # (Auto) 1.3 0.4-5.4 10 ^3/uL Monocytes # (Auto) 1.2 0-1.3 10 ^3/uL Eosinophils # (Auto) 0 0-0.8 10 ^3/uL Basophils # (Auto) 0.1 0-0.2 10 ^3/uL Nucleated Red Blood Cells 0.0 % Sodium Level 130 L 136-145 mmol/L Potassium Level 4.4 3.5-5.1 mmol/L Chloride Level 100 98-107 mmol/L Carbon Dioxide Level 22 20-31 mmol/L Anion Gap 8 5-15 Blood Urea Nitrogen 15 9-23 mg/dL Creatinine 0.61 0.550-1.02 mg/dL Glomerular Filtration Rate Calc 85 >90 mL/min BUN/Creatinine Ratio 24.6 H 10.0-20.0 Serum Glucose 107 H 74-106 mg/dL Calcium Level 9.6 8.7-10.4 mg/dL Total Bilirubin 0.5 0.2-1.0 mg/dL Aspartate Amino Transferase (AST) 10 L 13-40 U/L Alanine Aminotransferase (ALT) < 9 7-40 U/L Alkaline Phosphatase 71 46-116 U/L Total Protein 6.7 5.7-8.2 g/dL Albumin 4.0 3.2-4.8 g/dL Vitamin B12 Level 604 211-911 pg/mL Vitamin D 25-Hydroxy 26.9 L 30.0-100 ng/mL Folic Acid 17.20 >5.38 ng/mL Lactic Acid Level 1.1 0.4-2.0 mmol/L Thyroid Stimulating Hormone (TSH) 1.59 0.55-4.78 uIU/mL Urine Color Colorless Yellow Urine Clarity Turbid H Clear Urine pH 6.5 5.0-9.0 Urine Specific [place] 1.010 1.001-1.035 Urine Protein Trace H Negative Urine Ketones Negative Negative Urine Blood Negative Negative /uL Urine Nitrite Negative Negative Urine Bilirubin Negative Negative Urine Urobilinogen Normal Negative mg/dL Urine Leukocyte Esterase 3+ Negative /uL Urine RBC 2 0 - 4 /hpf Urine Microscopic WBC 37 H 0-5 /HPF Urine Squamous Epithelial Cells Few <5 /hpf Urine Bacteria Many H None Seen /hpf Urine Glucose Normal Normal mg/dL Troponin I High Sensitivity < 3 L </=34 ng/L Test 11/13/24 11:48 Range/Units B-Type Natriuretic Peptide 32.19 0-100 pg/mL Imaging: Assessment: Dysphagia Possible GERD Weight loss Constipation history Plan: Discussed with Dr. Donahue Protonix Swallow eval pending In view of patient tolerating a regular diet and having no problem swallowing we will continue to monitor the patient no GI procedures planned at this time We will continue to follow the patient Plan discussed with caregivers at bedside and RN Thank you for this consult Date of Service: November 14, 2024 Billing Provider: JAMSHID CABALLERO Common Visit Codes: CONSULT ONLY Consultation Codes: [id number] CONSULT <60MIN JAMSHID CABALLERO November 14, 2024 13:05
[2024-11-14] MEDS: OLANZapine 5 MG TAB PO ONE (16:19)
--- NOTE | 2024-11-14 17:11 | DVHSR ---
APPROVED REPORT EXAM: LIMITED Two-dimensional and M-mode echocardiogram with Doppler and color Doppler. Blood Pressure: 128/58 mmHg INDICATION murmur aortic area RISK FACTORS Height: 5'1, Weight: 149 DIMENSIONS LVDd4.2 (3.8-5.7cm)LA (2D)3.9 (1.9-4.0cm)Aortic Root3.0 (2.0-3.7cm) LVDs3.1 (2.5-4.0cm)LA (MM) (1.9-4.0cm)Aortic Cusp Exc1.6 (1.5-2.0cm) EF (%) 50.0 (55-70%)Rt. Atrium (1.9-4.0cm)Asc. Aorta cm IVSd0.8 (0.7-1.1cm)RV (D) (1.8-2.4cm) PWd0.7 (0.7-1.1cm) Mitral Valve MitralMitral Stenosis E wave0.80m/sMV Mean GR.mmHg A wave1.20m/sMV Peak GR.47mmHg E/A ratio0.72D MVAcm2 DECEL [id number] 1/2 Timems Aortic Valve Aortic ValveAortic Stenosis V10.93m/Rose Mean GR.5mmHg V21.50m/Rose Peak GR.9mmHg LVOT Diameter1.8 (1.8-2.4cm)Doppler AVA1.58cm2 Pulmonic Valve V20.98m/s Tricuspid Valve TR Velocity2.24m/s [id number] Other Information Quality : Technically LimitedRhythm : Technically limited study due to pt moving, uncoopertative and moving arm saying probe is hurting he r. Conclusion Technically good study. Sinus rhythm. Mild left atrial enlargement. Mild dilation of the sinuses of Valsalva. . Valves appear to be structurally normal. EF of 60% with normal RV function Doppler reveals no significant jets No pericardial effusion masses or vegetations.
[2024-11-14] MEDS: cefTRIAXone 1GM/50ML D5W 50 ML IV SCH (20:56)
[2024-11-14 21:00] VITALS: BP 143/58; PULSE 80; RESP 15; TEMP 98.6; O2SAT 93
[2024-11-14] MEDS: DONEPEZIL HYDROCHLORIDE 5 MG TAB PO SCH (21:17)
[2024-11-14] MEDS: ATORVASTATIN 20 MG TAB PO SCH (21:17)
[2024-11-14] MEDS ORDERED: AMITRIPTYLINE HCL 25 MG TAB PO SCH (22:00)
[2024-11-15 01:00] VITALS: BP 125/57; PULSE 93; RESP 15; TEMP 98.4; O2SAT 97
[2024-11-15 05:00] VITALS: BP 133/43; PULSE 65; RESP 15; TEMP 98.3; O2SAT 97
[2024-11-15 09:00] VITALS: BP 113/53; PULSE 67; RESP 16; TEMP 98.3; O2SAT 97
[2024-11-15] MEDS: PANTOPRAZOLE 40 MG/10 ML VIAL INJ IV SCH (10:00)
[2024-11-15] MEDS ORDERED: PANTOPRAZOLE 40 MG/10 ML VIAL INJ IV SCH (10:00)
--- NOTE | 2024-11-15 10:17 | DVHPN2 ---
Progress Note Date Seen: November 15, 2024 Resident Creating Document: MALINA NICHOLS RESIDENT Medical Necessity Reason Pt with a Central, PICC or Fol: No Subjective Review of Systems Patient seen and examined at the bedside. Patient is today more awake and alert and able to swallow so we will keep her on full liquid diet. Conservative management for now Objective vital signs Vital Sign Date Time Temp Pulse Resp B/P (MAP) Pulse Ox O2 Delivery O2 Flow Rate FiO2 11/15/24 09:00 98.3 67 16 113/53 (73) 97 98.3 11/14/24 20:00 Room Air* 0 21 Total Intake and Output 11/14/24 11/14/24 11/15/24 14:59 22:59 06:59 Intake Total 50 ml 100 ml Balance 50 ml 100 ml medications Current Medications Medications Dose Ordered Sig/Sol Route Start Time Stop Time Status Last Admin Dose Admin Ondansetron HCl 4 mg Q4HP PRN IV 11/13/24 22:45 Enoxaparin Sodium 40 mg DAILY SC 11/14/24 10:00 11/14/24 10:58 40 MG Ceftriaxone Sodium 50 ml @ 100 mls/hr DAILY@2100 IV 11/14/24 21:00 11/14/24 20:56 100 MLS/HR Docusate Sodium 100 mg BIDPRN PRN PO 11/13/24 23:00 Aspirin 81 mg DAILY PO 11/14/24 10:00 11/14/24 10:58 81 MG Atorvastatin Calcium 40 mg HS PO 11/14/24 22:00 11/14/24 21:17 40 MG Donepezil HCl 10 mg HS PO 11/14/24 22:00 11/14/24 21:17 10 MG Patient Own Medication 1 DAILY PO 11/14/24 10:00 11/14/24 10:58 1 Acetaminophen 650 mg Q4HP PRN PO 11/14/24 09:15 Ergocalciferol 50,000 unit Q7D PO 11/14/24 10:00 11/14/24 10:58 50,000 UNIT Pantoprazole Sodium 40 mg BID IV 11/15/24 10:00 UNV Sucralfate 1 gm BID@0600,2200 PO 11/15/24 22:00 UNV Examination General Appearance: Alert, Oriented X3, Cooperative, No acute distress HEENT: Atraumatic, PERRLA, EOMI, Mucous membrane moist/pink Respiratory: Clear to auscultation, Normal air movement Cardiovascular: Regular rate, Normal S1, Normal S2, No murmurs, no chest wall tenderness Abdominal: Normal bowel sounds, Soft, No tenderness, No hepatospenomegaly, No masses Extremities: No clubbing, No cyanosis, No edema, Normal pulses, No tenderness/swelling Skin: No rashes, No breakdown, No significant lesion Neuro: no sensory motor deficits Psych/Mental Status: Mental status NL, Mood NL Nurse was there as a saddle stitch operator during the examination laboratory and microbiology Laboratory Tests 11/14/24 06:15 Test 11/14/24 06:15 Range/Units Serum Glucose 107 H 74-106 mg/dL Microbiology Date/Time Source Procedure Growth Status 11/14/24 02:11 Nose MRSA Screen - Final Complete 11/13/24 23:00 Blood Blood Culture - Preliminary NO GROWTH AFTER 24 HOURS OF INCUBATION. Resulted Labs and/or images reviewed: Labs reviewed by me, Image(s) reviewed by me Problem List/Assessment/Plan Problem List/Assessment/Plan Dysphagia Possible GERD Weight loss Constipation history Plan: Protonix 40 IV b.i.d. Zofran Carafate p.o. b.i.d. In view of patient tolerating liquids and having no problem swallowing we will continue to monitor the patient no GI procedures planned at this time Avoid NSAIDs, aspirin, caustic agents Thank you so much for the opportunity to consult on your patient. GI team will follow the patient Case an action plan discussed with Dr. Kristal Donahue. Complex care planning needed total 49 minutes of detailed discussion. Plan discussed with: Patient MALINA NICHOLS RESIDENT November 15, 2024 10:17
[2024-11-15 10:34] LABS: Basophils # (auto) 0 10 ^3/uL (0-0.2); Basophils % (auto) 0.3 % (0.0-2.0); Eosinophils # (auto) 0.1 10 ^3/uL (0-0.8); Eosinophils % (auto) 0.8 % (0.0-7.0); Hematocrit 30.1 % (36.0-46.0); Hemoglobin 10.4 g/dL (12.2-16.2); Lymphocytes % (auto) 11.4 % (10.0-50.0); Mean Corpuscular Hemoglobin 32.9 pg (28.0-32.0); Mean Corpuscular Hgb Conc. 34.7 g/dL (32.0-36.0); Mean Corpuscular Volume 94.8 fL (80.0-100.0); Monocytes # (auto) 1.1 10 ^3/uL (0-1.3); Monocytes % (auto) 11.8 % (0.0-12.0); Neutrophils # (auto) 6.9 10 ^3/uL (1.6-8.6); Neutrophils % (auto) 75.7 % (37.0-80.0); Platelet Count (auto) 303 10^3/uL (140-450); Red Blood Cells 3.17 10^6/uL (4.0-5.20); White Blood Cell 9.1 10^3/uL (4.4-10.8)
[2024-11-15 10:39] LABS: Chloride 99 mmol/L (98-107); Potassium 4.2 mmol/L (3.5-5.1)
[2024-11-15 10:40] LABS: Anion Gap 8 (5-15); Calcium 9.7 mg/dL (8.7-10.4); Carbon Dioxide 25 mmol/L (20-31)
[2024-11-15 10:41] LABS: Sodium 132 mmol/L (136-145)
[2024-11-15] MEDS ORDERED: TURM450C OR (10:42)
[2024-11-15] MEDS ORDERED: LISI-275 PO (10:42)
[2024-11-15] MEDS ORDERED: DONE1TAB88 PO (10:42)
[2024-11-15] MEDS ORDERED: ASPI-543 PO (10:42)
[2024-11-15 10:45] LABS: BUN/Creatinine Ratio 27.3 (10.0-20.0); Blood Urea Nitrogen 18 mg/dL (9-23)
[2024-11-15 10:46] LABS: Glucose 124 mg/dL (74-106)
[2024-11-15] MEDS ORDERED: ATOG30TA PO (10:48)
[2024-11-15] MEDS ORDERED: MAGN250T3 PO (10:48)
[2024-11-15] MEDS ORDERED: ROSU10TA16 PO (10:48)
[2024-11-15 13:00] VITALS: BP 128/49; PULSE 68; RESP 14; TEMP 98.1; O2SAT 96
--- NOTE | 2024-11-15 14:08 | ECG ---
[facility] Test Date: 2024-11-14 Test Time: 09:11:31 Pat Name: NEGRO LEWIS Department: ED Room: 0280 A Gender: F Steam Cleaner: MAHESH : 1935 Requested By: DARREN PANDA Order Number: [id number] Reading MD: Agustin Cunningham Measurements Intervals [place] Rate: 66 P: 55 [place]: 136 QRS: 26 QRSD: 82 T: 25 QT: 377 QTc: 395 Interpretive Statements Sinus rhythm Low voltage, precordial leads Borderline T abnormalities, anterior leads Baseline wander in lead(s) I Electronically Signed On 11-15-2024 15:33:49 PDT by Agustin Cunningham Please click the below link to view image of tracing.
[2024-11-15] MEDS ORDERED: PANT40TA2 PO (16:00)
[2024-11-15] MEDS ORDERED: NITR-52 PO (16:00)
[2024-11-15] MEDS ORDERED: SUCR1SUS5 PO (16:00)
[2024-11-15 17:00] VITALS: BP 138/57; PULSE 67; RESP 16; TEMP 99; O2SAT 99
--- NOTE | 2024-11-15 18:59 | DVHDSRES ---
Discharge Summary Date of Admission Resident Creating Document: MALINA NICHOLS RESIDENT Nov 13, 2024 at 22:44 Date of Discharge: November 15, 2024 Labs/Diagnostic Data: Laboratory Results Test 11/15/24 09:50 11/14/24 06:15 11/13/24 23:00 11/13/24 21:13 White Blood Count 9.1 10^3/uL (4.4-10.8) Red Blood Count 3.17 10^6/uL (4.0-5.20) Hemoglobin 10.4 g/dL (12.2-16.2) Hematocrit 30.1 % (36.0-46.0) Mean Corpuscular Volume 94.8 fL (80.0-100.0) Mean Corpuscular Hemoglobin 32.9 pg (28.0-32.0) Mean Corpuscular Hemoglobin Concent 34.7 g/dL (32.0-36.0) Red Cell Distribution Width 13.0 % (11.8-14.3) Platelet Count 303 10^3/uL (140-450) Mean Platelet Volume 7.3 fL (6.9-10.8) Neutrophils (%) (Auto) 75.7 % (37.0-80.0) Lymphocytes (%) (Auto) 11.4 % (10.0-50.0) Monocytes (%) (Auto) 11.8 % (0.0-12.0) Eosinophils (%) (Auto) 0.8 % (0.0-7.0) Basophils (%) (Auto) 0.3 % (0.0-2.0) Neutrophils # (Auto) 6.9 10 ^3/uL (1.6-8.6) Lymphocytes # (Auto) 1.0 10 ^3/uL (0.4-5.4) Monocytes # (Auto) 1.1 10 ^3/uL (0-1.3) Eosinophils # (Auto) 0.1 10 ^3/uL (0-0.8) Basophils # (Auto) 0 10 ^3/uL (0-0.2) Nucleated Red Blood Cells 0.0 % Sodium Level 132 mmol/L (136-145) Potassium Level 4.2 mmol/L (3.5-5.1) Chloride Level 99 mmol/L (98-107) Carbon Dioxide Level 25 mmol/L (20-31) Anion Gap 8 (5-15) Blood Urea Nitrogen 18 mg/dL (9-23) Creatinine 0.66 mg/dL (0.550-1.02) Glomerular Filtration Rate Calc 84 mL/min (>90) BUN/Creatinine Ratio 27.3 (10.0-20.0) Serum Glucose 124 mg/dL (74-106) Calcium Level 9.7 mg/dL (8.7-10.4) Total Bilirubin 0.5 mg/dL (0.2-1.0) Aspartate Amino Transferase (AST) 10 U/L (13-40) Alanine Aminotransferase (ALT) < 9 U/L (7-40) Alkaline Phosphatase 71 U/L (46-116) Total Protein 6.7 g/dL (5.7-8.2) Albumin 4.0 g/dL (3.2-4.8) Vitamin B12 Level 604 pg/mL (211-911) Vitamin D 25-Hydroxy 26.9 ng/mL (30.0-100) Folic Acid 17.20 ng/mL (>5.38) Lactic Acid Level 1.1 mmol/L (0.4-2.0) Thyroid Stimulating Hormone (TSH) 1.59 uIU/mL (0.55-4.78) Urine Color Colorless (Yellow) Urine Clarity Turbid (Clear) Urine pH 6.5 (5.0-9.0) Urine Specific [place] 1.010 (1.001-1.035) Urine Protein Trace (Negative) Urine Ketones Negative (Negative) Urine Blood Negative /uL (Negative) Urine Nitrite Negative (Negative) Urine Bilirubin Negative (Negative) Urine Urobilinogen Normal mg/dL (Negative) Urine Leukocyte Esterase 3+ /uL (Negative) Urine RBC 2 /hpf (0 - 4) Urine Microscopic WBC 37 /HPF (0-5) Urine Squamous Epithelial Cells Few /hpf (<5) Urine Bacteria Many /hpf (None Seen) Urine Glucose Normal mg/dL (Normal) Test 11/13/24 12:47 11/13/24 11:48 Troponin I High Sensitivity < 3 ng/L (</=34) B-Type Natriuretic Peptide 32.19 pg/mL (0-100) Other Laboratory Tests 11/15/24 09:50 Brief Hx & Hospital Course: Patient is an 88-year-old female with past medical history of migraine, advanced Alzheimer's dementia, hypertension, CVA who comes in to right hip pain. Patient is AO x1 at the time of my assessment which according to daughters at bedside is her baseline. According to the daughters, patient has been experiencing a right-sided hip pain for the last 4 days which has resulted in decreased mobility. Patient has also been increasingly urinary incontinent along with decreased appetite for the last 2 days. Per daughters, before current symptoms patient was able to ambulate independently with a walker. Hospital course: Patient was presented with acute metabolic versus toxic encephalopathy most likely delirium in the setting of advanced dementia, right hip pain and generalized weakness. Lumbar spine CT:No evidence of acute traumatic fractures. Grade 1 anterolisthesis of L5 on S1 which appears degenerative. Multilevel [id number]-rf-fsobqwrg degenerative changes of the lumbar spine as detailed above. If symptoms persist, consider MRI for further evaluation. Pelvic CT: No evidence of acute traumatic fractures or dislocations. If symptoms persist consider MRI to evaluate for possible occult fractures. U/A was consistent with UTI , preliminary culture revealed mixed larry and patient was treated with IV ceftriaxone 1 g daily. Final Diagnosis/Problems List # Acute metabolic encephalopathy; most likely delirium in the setting of advanced dementia # Generalized weakness # Right hip pain possibly due to osteoarthritis # Vitamin D deficiency # Acute complicated UTI # Dysphagia likely due to possible GERD # Advanced Alzheimer's dementia with baseline AO x1 # Hypertensive heart disease # History of CVA # History of migraine # Slow transit constipation Discharge Disposition: Home Discharge Instruct/Medications Diet: Cardiac 2g Na,low cholest Activity: No Restrictions, As Tolerated Follow Up/Referral: Follow up with [facility] clinic in 1 week Medications: As per EMR Discharge Statement: "Patient was advised to return to the ER or call 911 if any headaches, dizziness, shortness of breath, chest pain, abdominal pain, bleeding, fevers, or worsening of medical condition. Patient was counseled about treatment plan, medications, possible side effects, patientverbalized understanding. All questions were answered to the best of my ability. This discharge took greater then 30 minutes in planning, reviewing documentation, counseling the patient, and discussing with other team members." ASSESSMENT ASSESSMENT Assessment # Acute metabolic encephalopathy; most likely delirium in the setting of advanced dementia # Generalized weakness # Right hip pain possibly due to osteoarthritis # Vitamin D deficiency # Acute complicated UTI # Dysphagia likely due to possible GERD # Advanced Alzheimer's dementia with baseline AO x1 # Hypertensive heart disease # History of CVA # History of migraine # Slow transit constipation NIGEL DOUGHERTY RESIDENT November 15, 2024 18:59 CRISTEL NICOLE MD November 16, 2024 10:22
--- NOTE | 2024-11-15 19:00 | DVHPNRES ---
Progress Note Date Seen: November 15, 2024 Resident Creating Document: NIGEL DOUGHERTY RESIDENT Medical Necessity Reason Pt with a Central, PICC or Fol: No Subjective Review of Systems The patient was seen and examined on the bedside. The patient is [place]- speaking and she is confused; family translated; no specific complaint. family also mentioned she is tired and sleeping all the day. PT could not be able to assess the patient as patient is very sleepy. Objective vital signs Vital Sign Date Time Temp Pulse Resp B/P (MAP) Pulse Ox O2 Delivery O2 Flow Rate FiO2 11/15/24 17:00 99.0 67 16 138/57 (84) 99 99.0 11/15/24 08:00 Room Air* 0 21 Total Intake and Output 11/14/24 11/14/24 11/15/24 15:00 23:00 07:00 Intake Total 50 ml 100 ml Balance 50 ml 100 ml medications Current Medications Medications Dose Ordered Sig/Sol Route Start Time Stop Time Status Last Admin Dose Admin Ondansetron HCl 4 mg Q4HP PRN IV 11/13/24 22:45 Enoxaparin Sodium 40 mg DAILY SC 11/14/24 10:00 11/15/24 10:32 40 MG Ceftriaxone Sodium 50 ml @ 100 mls/hr DAILY@2100 IV 11/14/24 21:00 11/14/24 20:56 100 MLS/HR Docusate Sodium 100 mg BIDPRN PRN PO 11/13/24 23:00 Aspirin 81 mg DAILY PO 11/14/24 10:00 11/15/24 10:31 81 MG Atorvastatin Calcium 40 mg HS PO 11/14/24 22:00 11/14/24 21:17 40 MG Donepezil HCl 10 mg HS PO 11/14/24 22:00 11/14/24 21:17 10 MG Patient Own Medication 1 DAILY PO 11/14/24 10:00 11/15/24 10:32 1 Acetaminophen 650 mg Q4HP PRN PO 11/14/24 09:15 Ergocalciferol 50,000 unit Q7D PO 11/14/24 10:00 11/14/24 10:58 50,000 UNIT Pantoprazole Sodium 40 mg BID IV 11/15/24 10:00 Sucralfate 1 gm BID@0600,2200 PO 11/15/24 22:00 Examination Physical examination: General Appearance: Confused; awake; oriented to her daughters only HEENT: Atraumatic, PERRLA, EOMI, Mucous membrane moist/pink Respiratory: Clear to auscultation, Normal air movement Cardiovascular: Regular rate, Normal S1, Normal S2, No murmurs, no chest wall tenderness Abdominal: Normal bowel sounds, Soft, No tenderness, No hepatosplenomegaly, No masses Extremities: No clubbing, No cyanosis, No edema, Normal pulses, No tenderness/swelling Skin: No rashes, No breakdown, No significant lesion Neuro: Moves all extremities; no facial asymmetry; normal speech Psych/Mental Status: Confused laboratory and microbiology Laboratory Tests 11/15/24 09:50 Test 11/15/24 09:50 Range/Units Serum Glucose 124 H 74-106 mg/dL Microbiology Date/Time Source Procedure Growth Status 11/14/24 02:11 Nose MRSA Screen - Final Complete 11/13/24 23:00 Blood Blood Culture - Preliminary NO GROWTH AFTER 24 HOURS OF INCUBATION. Resulted 11/13/24 21:13 Voided Urine Urine Culture - Preliminary Resulted Labs and/or images reviewed: Labs reviewed by me, Image(s) reviewed by me Problem List/Assessment/Plan Problem List/Assessment/Plan Assessment/Plan: # Acute metabolic encephalopathy; most likely delirium in the setting of advanced dementia # Generalized weakness # Right hip pain possibly due to osteoarthritis # Vitamin D deficiency - Lumbar spine CT:No evidence of acute traumatic fractures. Grade 1 anterolisthesis of L5 on S1 which appears degenerative. Multilevel hpib-tl-zpyxlzef degenerative changes of the lumbar spine as detailed above. If symptoms persist, consider MRI for further evaluation. - Pelvic CT: No evidence of acute traumatic fractures or dislocations. If symptoms persist consider MRI to evaluate for possible occult fractures. - Vitamin D 77531 unit Q7D. - PT evaluation - To allow the patient's daughters to stay with her at bedside all the time # Acute complicated UTI - U/A consistent with UTI - Ordered urine bacterial culture - IV ceftriaxone 1 gm daily # Progressive dysphagia to solid and liquid - Consulted GI # Advanced Alzheimer's dementia with baseline AO x1 - resumed home medication donepezil # Hypertension # Hypertensive heart disease # History of CVA - CXR: No acute intrathoracic process. Cardiomegaly and atherosclerotic vascular disease. - aspirin 81 mg, atorvastatin 40 mg - Echo showed EF 60% with normal RV function #History of migraine - resumed home medication amitriptyline 25 mg # Slow transit constipation - Colace 100 mg p.o. b.i.d. as needed # DVT prophylaxis: Lovenox 40mg Pending PT evaluation to decide regarding discharge placement Plan discussed with Dr. Nicole Plan discussed with: Other (Daughters; nurse) My Orders My Orders Orders - NIGEL DOUGHERTY RESIDENT Procedure Category Date Status Time Discharge DISCHARGE 11/15/24 Transmitted 15:55 Addendum Addendum Addendum I was physically present for the leavitt portions of the service provided to patient by THE RESIDENT. I have reviewed the documentation, discussed the case with resident and agree with the resident's documentation except as noted. Also the patient's clinical case was discussed with the patient's nurse. This medical document was created using an electronic medical record system with computerized dictation system. Although this document has been carefully reviewed, there might still be some phonetic and typographical errors. These areas are purely typographical due to imperfections of the software programs, and do not reflect any compromise in the patient's medical care. Late signature. Date of Service: November 15, 2024 Billing Provider: CRISTEL NICOLE MD Common Visit Codes: 54973-[id number] INP/OBS CARE(HIGH) NIGEL DOUGHERTY RESIDENT November 15, 2024 19:00 CRISTEL NICOLE MD November 16, 2024 10:21
[2024-11-15] MEDS: ACETAMINOPHEN 325 MG TAB PO PRN (20:30)
[2024-11-15 21:00] VITALS: BP 136/60; PULSE 81; RESP 17; TEMP 99.5; O2SAT 95
[2024-11-15] MEDS: SUCRALFATE 1 GM/10 ML ORAL SUSP PO SCH (21:31)
[2024-11-16 01:00] VITALS: BP 115/58; PULSE 90; RESP 16; TEMP 98.1; O2SAT 96
[2024-11-16 05:00] VITALS: BP 125/59; PULSE 80; RESP 16; TEMP 98.6; O2SAT 94
[2024-11-16 09:00] VITALS: BP 153/48; PULSE 63; RESP 16; TEMP 97.4; O2SAT 98
[2024-11-16 10:59] VITALS: BP 153/48; PULSE 63; RESP 16; TEMP 97.4; O2SAT 98
--- NOTE | 2024-11-16 12:13 | DVHDSRES ---
Discharge Summary Date of Admission Resident Creating Document: NIGEL DOUGHERTY RESIDENT Nov 13, 2024 at 22:44 Date of Discharge: November 16, 2024 Admitting Diagnosis Right hip pain; was found with altered mental status Wounds: No open wound was present Labs/Diagnostic Data: Laboratory Results Test 11/15/24 09:50 11/14/24 06:15 11/13/24 23:00 11/13/24 21:13 White Blood Count 9.1 10^3/uL (4.4-10.8) Red Blood Count 3.17 10^6/uL (4.0-5.20) Hemoglobin 10.4 g/dL (12.2-16.2) Hematocrit 30.1 % (36.0-46.0) Mean Corpuscular Volume 94.8 fL (80.0-100.0) Mean Corpuscular Hemoglobin 32.9 pg (28.0-32.0) Mean Corpuscular Hemoglobin Concent 34.7 g/dL (32.0-36.0) Red Cell Distribution Width 13.0 % (11.8-14.3) Platelet Count 303 10^3/uL (140-450) Mean Platelet Volume 7.3 fL (6.9-10.8) Neutrophils (%) (Auto) 75.7 % (37.0-80.0) Lymphocytes (%) (Auto) 11.4 % (10.0-50.0) Monocytes (%) (Auto) 11.8 % (0.0-12.0) Eosinophils (%) (Auto) 0.8 % (0.0-7.0) Basophils (%) (Auto) 0.3 % (0.0-2.0) Neutrophils # (Auto) 6.9 10 ^3/uL (1.6-8.6) Lymphocytes # (Auto) 1.0 10 ^3/uL (0.4-5.4) Monocytes # (Auto) 1.1 10 ^3/uL (0-1.3) Eosinophils # (Auto) 0.1 10 ^3/uL (0-0.8) Basophils # (Auto) 0 10 ^3/uL (0-0.2) Nucleated Red Blood Cells 0.0 % Sodium Level 132 mmol/L (136-145) Potassium Level 4.2 mmol/L (3.5-5.1) Chloride Level 99 mmol/L (98-107) Carbon Dioxide Level 25 mmol/L (20-31) Anion Gap 8 (5-15) Blood Urea Nitrogen 18 mg/dL (9-23) Creatinine 0.66 mg/dL (0.550-1.02) Glomerular Filtration Rate Calc 84 mL/min (>90) BUN/Creatinine Ratio 27.3 (10.0-20.0) Serum Glucose 124 mg/dL (74-106) Calcium Level 9.7 mg/dL (8.7-10.4) Total Bilirubin 0.5 mg/dL (0.2-1.0) Aspartate Amino Transferase (AST) 10 U/L (13-40) Alanine Aminotransferase (ALT) < 9 U/L (7-40) Alkaline Phosphatase 71 U/L (46-116) Total Protein 6.7 g/dL (5.7-8.2) Albumin 4.0 g/dL (3.2-4.8) Vitamin B12 Level 604 pg/mL (211-911) Vitamin D 25-Hydroxy 26.9 ng/mL (30.0-100) Folic Acid 17.20 ng/mL (>5.38) Lactic Acid Level 1.1 mmol/L (0.4-2.0) Thyroid Stimulating Hormone (TSH) 1.59 uIU/mL (0.55-4.78) Urine Color Colorless (Yellow) Urine Clarity Turbid (Clear) Urine pH 6.5 (5.0-9.0) Urine Specific [place] 1.010 (1.001-1.035) Urine Protein Trace (Negative) Urine Ketones Negative (Negative) Urine Blood Negative /uL (Negative) Urine Nitrite Negative (Negative) Urine Bilirubin Negative (Negative) Urine Urobilinogen Normal mg/dL (Negative) Urine Leukocyte Esterase 3+ /uL (Negative) Urine RBC 2 /hpf (0 - 4) Urine Microscopic WBC 37 /HPF (0-5) Urine Squamous Epithelial Cells Few /hpf (<5) Urine Bacteria Many /hpf (None Seen) Urine Glucose Normal mg/dL (Normal) Test 11/13/24 12:47 11/13/24 11:48 Troponin I High Sensitivity < 3 ng/L (</=34) B-Type Natriuretic Peptide 32.19 pg/mL (0-100) Other Laboratory Tests 11/15/24 09:50 Brief Hx & Hospital Course: Patient is an 88-year-old female with past medical history of migraine, advanced Alzheimer's dementia, hypertension, CVA who comes in to right hip pain. Patient is AO x1 at the time of my assessment which according to daughters at bedside is her baseline. According to the daughters, patient has been experiencing a right-sided hip pain for the last 4 days which has resulted in decreased mobility. Patient has also been increasingly urinary incontinent along with decreased appetite for the last 2 days. Per daughters, before current symptoms patient was able to ambulate independently with a walker. Hospital course: Patient was presented with acute metabolic versus toxic encephalopathy most likely delirium in the setting of advanced dementia, right hip pain and generalized weakness. Lumbar spine CT:No evidence of acute traumatic fractures. Grade 1 anterolisthesis of L5 on S1 which appears degenerative. Multilevel yert-tz-avtpbegh degenerative changes of the lumbar spine as detailed above. If symptoms persist, consider MRI for further evaluation. Pelvic CT: No evidence of acute traumatic fractures or dislocations. If symptoms persist consider MRI to evaluate for possible occult fractures. U/A was consistent with UTI , preliminary culture revealed mixed larry and patient was treated with IV ceftriaxone 1 g daily. PT evaluated the patient and recommended patient can walk independently with the help of walker. Discharge plan was discussed with the family and all questions were answered. Patient is being discharged to home with nitrofurantoin 100 mg b.i.d. for 5 days, Protonix 40 mg daily, Carafate 1 g b.i.d. for 1 month and advised to continue home medications. Family was also advised to follow up with [facility] in 1 week. Physical examination on discharge: General Appearance: Alert, oriented X1, oriented to her daughters only HEENT: Atraumatic, PERRLA, EOMI, Mucous membrane moist/pink Respiratory: Clear to auscultation, Normal air movement Cardiovascular: Regular rate, Normal S1, Normal S2, No murmurs, no chest wall tenderness Abdominal: Normal bowel sounds, Soft, No tenderness, No hepatosplenomegaly, No masses Extremities: No clubbing, No cyanosis, No edema, Normal pulses, No tenderness/swelling Skin: No rashes, No breakdown, No significant lesion Neuro: Moves all extremities; no facial asymmetry; normal speech Psych/Mental Status: Confused, advanced dementia Discussed with Dr. Alhurani Consults/Reason for consult No consultation was done Operations or Procedures CT LS SPINE WO CONTRAST INDICATION: pain : 88 old Female pain All CT scans at this medical facility are performed using dose modulation techniques as appropriate to a performed exam including the following: Automated exposure control was utilized; adjustment of the MA and/or KV according to patient size; and use of iterative reconstruction technique. FINDINGS: 5 eex-pxa-tjqtatv lumbar-type vertebrae. Normal alignment of the lumbar spine. Vertebral body heights are relatively maintained. Superior endplate Schmorl node of L2 and L3 with inferior endplate schmorl node of L3. Hemangioma within the left T12 vertebral body. Diffuse demineralization. T12-L1: No significant spinal canal or neural foramina stenosis. L1-L2: Mild posterior disc bulge without significant spinal canal or neural foramina stenosis. L2-L3: No significant spinal canal stenosis. Mild left-sided neural foramina stenosis. L3-L4: Minimal posterior disc bulge without significant spinal canal stenosis. Wwtz-ik-wyuyyocx bilateral neural foramina stenosis. L4-L5: Mild posterior disc bulge with ligamentum flavum hypertrophy without significant spinal canal stenosis. Jrzm-vf-mpfdqhho bilateral neural foramina stenosis. L5-S1: Grade 1 anterolisthesis of L5 on S1. Mild posterior disc bulge without significant spinal canal stenosis. Moderate right with jiua-zh-ymllhsrv left- sided neural foramina stenosis. Nonspecific calcification within the paraspinal muscle from T11 to L1-L2. Otherwise, the paraspinal muscles are unremarkable. IMPRESSION: No evidence of acute traumatic fractures. Grade 1 anterolisthesis of L5 on S1 which appears degenerative. Multilevel uroi-ux-gjwrvmdl degenerative changes of the lumbar spine as detailed above. If symptoms persist, consider MRI for further evaluation. Exam: CT PELVIS WO CONTRAST History: pain, unable to ambulate Radiation Dose Information: CT Dose: CTDI volume is 9.63 mGy. Dose-length product is 1040.69 mGy*cm FINDINGS: Diffuse demineralization. No evidence of acute traumatic fractures. Uwzf-mw-sflimwer degenerative changes of bilateral SI joints and bilateral hips. Minimal lateral posterior pelvic wall subcutaneous fat edema with mild edema of the btrww-pbcxdiw-nmnr-left posterolateral hips Partially visualized sigmoid diverticulosis without diverticulitis. IMPRESSION: No evidence of acute traumatic fractures or dislocations. If symptoms persist, consider MRI to evaluate for possible occult fractures. Condition at Discharge: Poor Final Diagnosis/Problems List # Acute metabolic encephalopathy; most likely delirium in the setting of advanced dementia # Generalized weakness # Right hip pain possibly due to osteoarthritis # Vitamin D deficiency # Acute complicated UTI # Dysphagia likely due to possible GERD # Advanced Alzheimer's dementia with baseline AO x1 # Hypertensive heart disease # History of CVA # History of migraine # Slow transit constipation Discharge Disposition: Home Discharge Instruct/Medications Diet: Cardiac 2g Na,low cholest Activity: No Restrictions, As Tolerated Follow Up/Referral: Follow up with [facility] clinic in 1 week Medications: As per EMR Discharge Statement: "Patient was advised to return to the ER or call 911 if any headaches, dizziness, shortness of breath, chest pain, abdominal pain, bleeding, fevers, or worsening of medical condition. Patient was counseled about treatment plan, medications, possible side effects, patientverbalized understanding. All questions were answered to the best of my ability. This discharge took greater then 30 minutes in planning, reviewing documentation, counseling the patient, and discussing with other team members." ASSESSMENT ASSESSMENT Assessment # Acute metabolic encephalopathy; most likely delirium in the setting of advanced dementia # Generalized weakness # Right hip pain possibly due to osteoarthritis # Vitamin D deficiency # Acute complicated UTI # Dysphagia likely due to possible GERD # Advanced Alzheimer's dementia with baseline AO x1 # Hypertensive heart disease # History of CVA # History of migraine # Slow transit constipation Addendum Addendum Addendum I was physically present for the [place]avitt portions of the service provided to patient by THE RESIDENT. I have reviewed the documentation, discussed the case with resident and agree with the resident's documentation except as noted. Also the patient's clinical case was discussed with the patient's nurse. This medical document was created using an electronic medical record system with computerized dictation system. Although this document has been carefully reviewed, there might still be some phonetic and typographical errors. These areas are purely typographical due to imperfections of the software programs, and do not reflect any compromise in the patient's medical care. Late signature. Date of Service: November 16, 2024 Billing Provider: CRISTEL NICOLE MD Common Visit Codes: 36004-RVB/OBS DISCH DAY >30min NIGEL DOUGHERTY RESIDENT November 16, 2024 12:13 CRISTEL NICOLE MD November 17, 2024 11:59
== END 2024-11-16 12:00 | disposition home or self-care (01) | DRG 640 ==
LOC: ER 10:51 → EDBD 10:51 → OVERFLOW 22:41 → WEST WING 11-14 18:42
PROVIDERS: ADMIT Internal Medicine; ATTEND Internal Medicine
DX: E87.1 Hypo-osmolality and hyponatremia (principal); G92.8 Other toxic encephalopathy; N39.0 Urinary tract infection, site not specified; M16.11 Unilateral primary osteoarthritis, right hip; G30.9 Alzheimer's disease, unspecified; F02.80 Dementia in other diseases classified elsewhere, unspecified severity, without behavioral disturbance, psychotic disturbance, mood disturbance, and anxiety; E55.9 Vitamin D deficiency, unspecified; K21.9 Gastro-esophageal reflux disease without esophagitis; K59.00 Constipation, unspecified; G43.909 Migraine, unspecified, not intractable, without status migrainosus; I11.9 Hypertensive heart disease without heart failure; R13.10 Dysphagia, unspecified; R63.4 Abnormal weight loss; Z88.1 Allergy status to other antibiotic agents; Z79.899 Other long term (current) drug therapy; Z86.73 Personal history of transient ischemic attack (TIA), and cerebral infarction without residual deficits; Z90.710 Acquired absence of both cervix and uterus; Z68.24 Body mass index [BMI] 24.0-24.9, adult
CPT/HCPCS: 36415; 71045; 72131; 72192; 80048; 80053; 81001; 82306; 82607; 82746; 83605; 83880; 84443; 84484; 85025; 87040; 87081; 87086; 92610; 93005; 93306; 96360; 97163; G0378; J2470; Q0162